=== PATIENT | female | born 1960 | race Caucasian/White ===

== ENCOUNTER 2017-09-17 09:03 | Inpatient (IN) | payer OTHER, MEDICAID ==
[2017-09-09 10:21] VITALS: BP 133/83
[~2017-09-17] VITALS: Ht 163.8 cm; Wt 86.3 kg
[~2017-09-17 09:03] MED LIST: BUPR150T73 PO; CARB200T4 PO; DIAZ5TAB4 PO; EPINEPHRINE 1 MG/ML, 1ML ONE; EQUATE ALLERGY PO; FURO40TA6 PO; GABA300C10 PO; HYDR-3237 PO; KETOROLAC 60 MG/2 ML ONE; LORA1TAB PO; METR500T PO; MORP10CA7 PO; NAPR375T5 PO; OLAN20TA7 PO; PRAZ5CAP2 PO; PROM25TA10 PO; ROPIvacaine/PF 0.2%, 20 ML ONE; SODIUM CHLORIDE 0.9% 100 ML ONE; TRANEXAMIC ACID 100 MG/ML, 10ML ONE; TRIH5TAB2 PEG; TRIH5TAB2 PO; Will bring list DOS; ZIPR60CA3 PO; morphine SULFATE/PF 1 MG/ML, 10ML ONE
[2017-09-17] MEDS ORDERED: VANCOMYCIN PER PHARMACY MC STA (09:11)
[2017-09-17] MEDS ORDERED: VANCOMYCIN 1,600 MG in SODIUM CHLORIDE 0.9% 250 ML IV ONE (09:30)
[2017-09-17] MEDS ORDERED: FENTANYL PF 250 MCG/5ML ONE (09:50)
[2017-09-17] MEDS ORDERED: MIDAZOLAM 1 MG/ML, 2ML ONE (09:50)
[2017-09-17] MEDS ORDERED: LACTATED RINGERS 1,000 ML IV SCH (10:00)
[2017-09-17] MEDS ORDERED: DEXAMETHASONE 4 MG/ML, 1ML ONE (10:05)
[2017-09-17] MEDS ORDERED: ONDANSETRON 2MG/ML, 2ML ONE (10:05)
[2017-09-17] MEDS ORDERED: PROPOFOL 10 MG/ML, 20ML ONE (10:05)
[2017-09-17] MEDS ORDERED: CEFAZOLIN 1,000 MG ONE (10:05)
[2017-09-17] MEDS ORDERED: HYDROmorphone 1 MG/ML, 1ML ONE ×2 (11:21→12:44)
[2017-09-17] MEDS ORDERED: ACETAMINOPHEN 650 MG/20.3 ML UDC ONE (12:44)
[2017-09-17] MEDS ORDERED: FENTANYL PF 100 MCG/2ML ONE (12:44)
[2017-09-17] MEDS ORDERED: OXYcodone 5 MG/5 ML ORAL.SOL UDC ONE (12:44)
[2017-09-17] MEDS: FENTANYL PF 100 MCG/2ML IV PRN ×2 (12:46→13:02)
[2017-09-17] MEDS: HYDROmorphone 1 MG/ML, 1ML IV PRN ×5 (12:51→13:17)
[2017-09-17] MEDS ORDERED: ALBUTEROL SULFATE 2.5 MG/3 ML NPPB PRN (13:00)
[2017-09-17] MEDS ORDERED: LABETALOL 5MG/ML, 20ML IV PRN (13:00)
[2017-09-17] MEDS ORDERED: MEPERIDINE/PF 25MG/0.5ML IVPush PRN (13:00)
[2017-09-17] MEDS ORDERED: PROMETHAZINE 25 MG/ML, 1ML IV PRN (13:00)
[2017-09-17] MEDS ORDERED: hydrALAzine 20 MG/ML, 1ML IV PRN (13:00)
[2017-09-17] MEDS ORDERED: LORazepam 2 MG/ML, 1ML IVPush PRN (13:00)
[2017-09-17] MEDS ORDERED: OXYcodone 5 MG/5 ML ORAL.SOL UDC PO PRN (13:00)
[2017-09-17] MEDS ORDERED: HYDROmorphone 2 MG/ML, 1ML ONE (13:03)
[2017-09-17] MEDS ORDERED: LORazepam 2 MG/ML, 1ML ONE (13:19)
[2017-09-17 14:45] VITALS: BP 106/63
[2017-09-17] MEDS ORDERED: morphine SULFATE 10 MG/ML, 1ML IV PRN (15:00)
[2017-09-17] MEDS ORDERED: BISACODYL 10 MG SUPP PR PRN (15:00)
[2017-09-17] MEDS ORDERED: ONDANSETRON 2MG/ML, 2ML IVPush PRN (15:00)
[2017-09-17] MEDS ORDERED: ZOLPIDEM 5MG TABLET PO PRN (15:00)
[2017-09-17] MEDS ORDERED: MAGNESIUM HYDROXIDE 8%, 30ML UDC PO PRN (15:00)
[2017-09-17] MEDS ORDERED: HYDROcodone/APAP 7.5-325MG/15ML UDC PO PRN (15:30)
[2017-09-17] MEDS ORDERED: ACETAMINOPHEN 325 MG TABLET PO PRN (15:30)
[2017-09-17] MEDS ORDERED: SENNA/DOCUSATE TABLET PO PRN (15:30)
[2017-09-17] MEDS ORDERED: HYDROcodone/APAP 5/325 TABLET PO PRN (15:30)
[2017-09-17] MEDS: POTASSIUM CHLORIDE 10 MEQ in D5%-0.45% NACL 1,000 ML IV SCH (17:11)
[2017-09-17] MEDS: CEFAZOLIN PMX 1GM/50ML 50 ML IVPB SCH (17:15)
[2017-09-17] MEDS ORDERED: PROMETHAZINE 25 MG/ML, 1ML IM PRN (20:00)
[2017-09-17 20:11] VITALS: BP 115/62
[2017-09-17] MEDS: DOCUSATE 100 MG CAPSULE PO SCH (20:45)
[2017-09-17 23:59] VITALS: BP 103/69
[2017-09-18] MEDS: OXYcodone/APAP 5/325MG TABLET PO PRN ×6 (00:45→21:36)
[2017-09-18] MEDS: CEFAZOLIN PMX 1GM/50ML 50 ML IVPB SCH (02:23)
[2017-09-18 03:42] VITALS: BP 121/72
[2017-09-18] MEDS: ENOXAPARIN 30 MG/0.3 ML SQ SCH ×2 (05:51→17:38)
[2017-09-18 07:34] VITALS: BP 113/71
[2017-09-18] MEDS: DOCUSATE 100 MG CAPSULE PO SCH ×2 (09:01→20:39)
[2017-09-18] MEDS: MULTIVITAMINS/MINERALS TABLET PO SCH (09:01)
[2017-09-18] MEDS: POTASSIUM CHLORIDE 10 MEQ in D5%-0.45% NACL 1,000 ML IV SCH (09:16)
[2017-09-18 13:50] VITALS: BP 123/72
[2017-09-18] MEDS: KETOROLAC 30 MG/1 ML IV SCH ×2 (15:56→23:17)
[2017-09-18 20:37] VITALS: BP 128/80
[2017-09-19] MEDS ORDERED: ASPI-496 PO (00:39)
[2017-09-19] MEDS ORDERED: OXYC-307 PO ×2 (00:40→15:19)
[2017-09-19 01:02] VITALS: BP 107/65
[2017-09-19] MEDS: OXYcodone/APAP 5/325MG TABLET PO PRN ×3 (03:50→13:40)
[2017-09-19] MEDS: ENOXAPARIN 30 MG/0.3 ML SQ SCH (05:46)
[2017-09-19 07:42] VITALS: BP 115/74
[2017-09-19] MEDS: POTASSIUM CHLORIDE 10 MEQ in D5%-0.45% NACL 1,000 ML IV SCH (07:42)
[2017-09-19] MEDS: MULTIVITAMINS/MINERALS TABLET PO SCH (09:00)
[2017-09-19] MEDS: DOCUSATE 100 MG CAPSULE PO SCH (09:00)
[2017-09-19] MEDS: KETOROLAC 30 MG/1 ML IV SCH (09:00)
[2017-09-19] MEDS ORDERED: potassium PO (12:47)
[2017-09-19 13:48] VITALS: BP 119/85
[2017-09-19 14:41] VITALS: BP 117/82
[2017-09-19 14:53] VITALS: BP 160/69
== END 2017-09-19 15:45 | disposition home or self-care (01) | DRG 468 ==
LOC: ORIP 09:03 → 4NOR 14:42 → DCLOUNGE 09-19 15:09
PROVIDERS: ADMIT Orthopaedic Surgery; ATTEND Orthopaedic Surgery
PROC: 0SRC0J9 Replacement of Right Knee Joint with Synthetic Substitute, Cemented, Open Approach (ICD-10-PCS; 2017-09-17)
PROC: 0SPC0JZ Removal of Synthetic Substitute from Right Knee Joint, Open Approach (ICD-10-PCS; principal; 2017-09-17 12:30)
DX: T84.032A Mechanical loosening of internal right knee prosthetic joint, initial encounter (principal); M79.7 Fibromyalgia; Y83.1 Surgical operation with implant of artificial internal device as the cause of abnormal reaction of the patient, or of later complication, without mention of misadventure at the time of the procedure; Z96.651 Presence of right artificial knee joint; Y92.89 Other specified places as the place of occurrence of the external cause; Z88.0 Allergy status to penicillin; Z82.3 Family history of stroke
CPT/HCPCS: 87070; 87075; 87205; C1713; J0171; J0690; J1100; J1170; J1650; J1885; J2250; J2274; J2405; J2550; J2704; J2795; J3010; J3370; J3480; C1762; C1776; J2060; J7050; J7120

== ENCOUNTER 2017-10-03 16:27 | Inpatient (IN) | payer OTHER, MEDICAID ==
[~2017-10-03] VITALS: Ht 162.6 cm; Wt 90.3 kg
[~2017-10-03 16:27] MED LIST changes: +ASPI-496 PO; -EPINEPHRINE 1 MG/ML, 1ML ONE; -KETOROLAC 60 MG/2 ML ONE; +OXYC-307 PO; -ROPIvacaine/PF 0.2%, 20 ML ONE; -SODIUM CHLORIDE 0.9% 100 ML ONE; -TRANEXAMIC ACID 100 MG/ML, 10ML ONE; -morphine SULFATE/PF 1 MG/ML, 10ML ONE; +potassium PO
[2017-10-03] MEDS ORDERED: FENTANYL PF 100 MCG/2ML ONE ×2 (19:12→21:03)
[2017-10-03] MEDS ORDERED: PROPOFOL 10 MG/ML, 20ML ONE (19:16)
[2017-10-03] MEDS ORDERED: CEFAZOLIN 1,000 MG ONE ×2 (19:16)
[2017-10-03] MEDS ORDERED: METOCLOPRAMIDE 5 MG/ML, 2ML ONE (19:18)
[2017-10-03] MEDS ORDERED: ONDANSETRON 2MG/ML, 2ML ONE (19:18)
[2017-10-03] MEDS ORDERED: VANCOMYCIN 1,000 MG ONE (19:29)
[2017-10-03] MEDS ORDERED: ALBUTEROL SULFATE 2.5 MG/3 ML NPPB PRN (19:30)
[2017-10-03] MEDS ORDERED: EPHEDRINE 50 MG/ML, 1ML IVPush PRN (19:30)
[2017-10-03] MEDS ORDERED: LABETALOL 5MG/ML, 20ML IV PRN (19:30)
[2017-10-03] MEDS ORDERED: ACETAMINOPHEN 325 MG TABLET PO PRN (19:30)
[2017-10-03] MEDS ORDERED: hydrALAzine 20 MG/ML, 1ML IV PRN (19:30)
[2017-10-03] MEDS ORDERED: ONDANSETRON 2MG/ML, 2ML IVPush PRN (19:30)
[2017-10-03] MEDS ORDERED: METOPROLOL 1 MG/ML, 5ML IV PRN (19:30)
[2017-10-03] MEDS ORDERED: OXYcodone 5 MG/5 ML ORAL.SOL UDC PO PRN (19:30)
[2017-10-03] MEDS ORDERED: BUPIVACAINE/PF 0.5% ONE (19:39)
[2017-10-03] MEDS ORDERED: SUCCINYLCHOLINE 20 MG/ML, 10ML ONE (19:39)
[2017-10-03] MEDS ORDERED: ACETAMINOPHEN 650 MG/20.3 ML UDC ONE (20:40)
[2017-10-03] MEDS ORDERED: OXYcodone 5 MG/5 ML ORAL.SOL UDC ONE (20:40)
[2017-10-03] MEDS ORDERED: HYDROmorphone 1 MG/ML, 1ML ONE ×2 (20:40→21:20)
[2017-10-03] MEDS: HYDROmorphone 1 MG/ML, 1ML IV PRN ×3 (20:45→21:21)
[2017-10-03] MEDS: FENTANYL PF 100 MCG/2ML IV PRN ×2 (21:09→21:16)
[2017-10-03] MEDS ORDERED: FENTANYL PF 100 MCG/2ML IV PRN (21:30)
[2017-10-03] MEDS ORDERED: HYDROmorphone 1 MG/ML, 1ML IV PRN (21:30)
[2017-10-03] MEDS ORDERED: ONDANSETRON 2MG/ML, 2ML IV PRN (22:30)
[2017-10-03] MEDS ORDERED: BISACODYL 10 MG SUPP PR PRN (22:30)
[2017-10-03] MEDS ORDERED: MAGNESIUM HYDROXIDE 8%, 30ML UDC PO PRN (22:30)
[2017-10-03] MEDS ORDERED: ALUMINUM/MAG/SIMETHICONE 30 ML UDC PO PRN (22:30)
[2017-10-03] MEDS ORDERED: HYDROcodone/APAP 7.5-325MG/15ML UDC PO PRN (22:30)
[2017-10-03] MEDS ORDERED: SENNA/DOCUSATE TABLET PO PRN (22:30)
[2017-10-03] MEDS ORDERED: DIPHENHYDRAMINE 25 MG CAPSULE PO PRN (22:30)
[2017-10-03] MEDS: POTASSIUM CHLORIDE 10 MEQ in D5%-0.45% NACL 1,000 ML IV SCH (23:01)
[2017-10-03] MEDS: CEFAZOLIN PMX 1GM/50ML 50 ML IVPB SCH (23:16)
[2017-10-03] MEDS: KETOROLAC 30 MG/1 ML IV SCH (23:16)
[2017-10-04 01:03] VITALS: BP 93/57
[2017-10-04] MEDS: KETOROLAC 30 MG/1 ML IV SCH ×2 (06:20→14:19)
[2017-10-04] MEDS: ENOXAPARIN 30 MG/0.3 ML SQ SCH ×2 (06:20→16:52)
[2017-10-04] MEDS: CEFAZOLIN PMX 1GM/50ML 50 ML IVPB SCH (06:20)
[2017-10-04] MEDS: OXYcodone 5 MG/5 ML ORAL.SOL UDC PO PRN ×5 (06:24→21:47)
[2017-10-04] MEDS: POTASSIUM CHLORIDE 10 MEQ in D5%-0.45% NACL 1,000 ML IV SCH (06:41)
[2017-10-04 08:05] VITALS: BP 100/65
[2017-10-04] MEDS: MULTIVITAMINS/MINERALS TABLET PO SCH (08:52)
[2017-10-04] MEDS: DOCUSATE 100 MG CAPSULE PO SCH ×2 (08:53→20:54)
[2017-10-04] MEDS: VANCOMYCIN PMX 1GM/200ML 200 ML IVPB SCH ×2 (09:58→16:52)
[2017-10-04 13:35] VITALS: BP 137/66
[2017-10-04 20:00] VITALS: BP 124/78
[2017-10-05] MEDS ORDERED: CLIN300C3 PO (00:28)
[2017-10-05] MEDS ORDERED: SULF-169 PO ×2 (00:35→07:48)
[2017-10-05 01:14] VITALS: BP 123/78
[2017-10-05] MEDS: VANCOMYCIN PMX 1GM/200ML 200 ML IVPB SCH (01:39)
[2017-10-05] MEDS: ACETAMINOPHEN 325 MG TABLET PO PRN ×2 (01:40→05:55)
[2017-10-05] MEDS: OXYcodone 5 MG/5 ML ORAL.SOL UDC PO PRN ×2 (01:40→05:55)
[2017-10-05] MEDS: ENOXAPARIN 30 MG/0.3 ML SQ SCH (05:54)
[2017-10-05] MEDS: POTASSIUM CHLORIDE 10 MEQ in D5%-0.45% NACL 1,000 ML IV SCH (05:56)
[2017-10-05] MEDS ORDERED: OXYC-307 PO (07:47)
[2017-10-05] MEDS ORDERED: ASPI-496 PO (07:47)
[2017-10-05 07:48] VITALS: BP 109/66
[2017-10-05] MEDS: DOCUSATE 100 MG CAPSULE PO SCH (09:24)
[2017-10-05] MEDS: MULTIVITAMINS/MINERALS TABLET PO SCH (09:24)
== END 2017-10-05 09:40 | disposition home or self-care (01) | DRG 909 ==
LOC: OR 17:44 → 4NOR 22:05
PROVIDERS: ADMIT Orthopaedic Surgery; ATTEND Orthopaedic Surgery
PROC: 0LQL0ZZ Repair Right Upper Leg Tendon, Open Approach (ICD-10-PCS; principal; 2017-10-03 19:00)
DX: T81.32XA Disruption of internal operation (surgical) wound, not elsewhere classified, initial encounter (principal); S76.111A Strain of right quadriceps muscle, fascia and tendon, initial encounter; W01.0XXA Fall on same level from slipping, tripping and stumbling without subsequent striking against object, initial encounter; Z96.651 Presence of right artificial knee joint; Y83.8 Other surgical procedures as the cause of abnormal reaction of the patient, or of later complication, without mention of misadventure at the time of the procedure; Y93.89 Activity, other specified; Y92.091 Bathroom in other non-institutional residence as the place of occurrence of the external cause; Y99.8 Other external cause status
CPT/HCPCS: 76000; 99285; J0690; J1170; J1650; J1885; J2405; J2704; J3010; J3370; J3480; J3490; J0330; J2765; Q0163

== ENCOUNTER 2021-03-29 15:27 | Emergency (ER) | payer OTHER, MEDICARE ==
[~2021-03-29] VITALS: Ht 165.1 cm; Wt 67.0 kg
[~2021-03-29 15:27] MED LIST changes: +CLIN300C3 PO; +OLAN20TA14 PO; -OLAN20TA7 PO; -OXYC-307 PO; +OXYC-380 PO; +SULF-169 PO; +TRIH5TAB16 PEG; +TRIH5TAB16 PO; -TRIH5TAB2 PEG; -TRIH5TAB2 PO
[2021-03-29] MEDS ORDERED: OXYcodone/APAP 5/325MG TABLET PO ONE (16:00)
[2021-03-29] MEDS ORDERED: OXYcodone/APAP 5/325MG TABLET ONE (16:24)
[2021-03-29] MEDS ORDERED: KETOROLAC 30 MG/1 ML ONE (17:01)
[2021-03-29] MEDS ORDERED: ONDANSETRON 2MG/ML, 2ML ONE (17:01)
[2021-03-29] MEDS ORDERED: MORPHINE SULFATE 4 MG/ML, 1ML ONE (17:01)
[2021-03-29 17:18] VITALS: BP 100/67
== END 2021-03-29 17:20 | disposition home or self-care (01) ==
LOC: ED 17:00
DX: M25.561 Pain in right knee (principal); M25.562 Pain in left knee; Z96.653 Presence of artificial knee joint, bilateral; F17.210 Nicotine dependence, cigarettes, uncomplicated
CPT/HCPCS: 29505; 99283

== ENCOUNTER 2021-08-02 05:23 | Emergency (ER) | payer MEDICARE ==
[~2021-08-02] VITALS: Ht 162.6 cm; Wt 65.0 kg
[2021-08-02 05:28] VITALS: BP 90/63
== END 2021-08-02 07:07 | disposition home or self-care (01) ==
LOC: ED 05:42
DX: M25.561 Pain in right knee (principal); Z20.822 Contact with and (suspected) exposure to COVID-19; Z96.651 Presence of right artificial knee joint

== ENCOUNTER 2021-08-02 07:15 | Day surgery (SDC) | payer MEDICARE, OTHER ==
[~2021-08-02] VITALS: Ht 162.6 cm; Wt 59.3 kg
[~2021-08-02 07:15] MED LIST changes: +BUPIVACAINE/PF 0.5% ONE; +FENTANYL PF 100 MCG/2ML ONE; +MIDAZOLAM 1 MG/ML, 2ML ONE; -OXYC-380 PO; +OXYC-501 PO; +ROPIvacaine/PF 0.5%, 30 ML ONE; +methylPREDNISolone*ACETATE* 80 MG/ML ONE
[2021-08-02] MEDS ORDERED: CHLORHEXIDINE 15 ML UDC ONE (07:17)
[2021-08-02 07:34] VITALS: BP 107/22
[2021-08-02] MEDS ORDERED: LACTATED RINGERS 1,000 ML IV SCH (08:00)
[2021-08-02] MEDS ORDERED: CHLORHEXIDINE 15 ML UDC PO ONE (08:00)
[2021-08-02] MEDS ORDERED: VANCOMYCIN 1,000 MG in SODIUM CHLORIDE 0.9% 100 ML IV ONE (08:30)
[2021-08-02] MEDS ORDERED: KETOROLAC 30 MG/1 ML ONE (08:47)
[2021-08-02] MEDS ORDERED: ACETAMINOPHEN 650 MG/20.3 ML UDC ONE (08:47)
[2021-08-02] MEDS ORDERED: OXYcodone 5 MG/5 ML ORAL.SOL UDC ONE (08:48)
[2021-08-02] MEDS ORDERED: HYDROcodone/APAP 7.5-325MG/15ML UDC PO PRN (09:00)
[2021-08-02] MEDS ORDERED: KETOROLAC 30 MG/1 ML IVPush PRN (09:00)
[2021-08-02] MEDS ORDERED: ACETAMINOPHEN 650 MG/20.3 ML UDC PO PRN (09:00)
[2021-08-02] MEDS ORDERED: ONDANSETRON 2MG/ML, 2ML IVPush PRN (09:00)
[2021-08-02] MEDS ORDERED: PROMETHAZINE 25 MG/ML, 1ML IVPush PRN (09:00)
[2021-08-02] MEDS ORDERED: MEPERIDINE/PF 25MG/0.5ML IVPush PRN (09:00)
[2021-08-02] MEDS ORDERED: FENTANYL PF 100 MCG/2ML IV PRN (09:00)
[2021-08-02] MEDS ORDERED: HYDROmorphone 1 MG/ML, 1ML INJ IVPush PRN (09:00)
[2021-08-02] MEDS ORDERED: OXYcodone 5 MG/5 ML ORAL.SOL UDC PO PRN (09:00)
== END 2021-08-02 09:45 | disposition home or self-care (01) ==
LOC: OUT 07:15
PROVIDERS: ATTEND Orthopaedic Surgery
DX: T84.022A Instability of internal right knee prosthesis, initial encounter (principal); I50.9 Heart failure, unspecified; Z79.899 Other long term (current) drug therapy; Z88.0 Allergy status to penicillin; Y83.8 Other surgical procedures as the cause of abnormal reaction of the patient, or of later complication, without mention of misadventure at the time of the procedure
CPT/HCPCS: 27552; 73560; 93005; J1885; J2250; J3010; J7120; 76000; J2795; J1040